=== PATIENT | male | born 1985 | race Hispanic/Latino ===

== ENCOUNTER 2019-12-26 00:20 | Emergency (ER) | payer OTHER ==
[2019-12-26] MEDS ORDERED: ACETAMINOPHEN EXTRA STRENGTH 500 MG TABLET ONE (01:13)
== END 2019-12-26 01:20 | disposition home or self-care (01) ==
LOC: EDH 00:20
DX: S61.012A Laceration without foreign body of left thumb without damage to nail, initial encounter (principal); Z72.0 Tobacco use; W26.0XXA Contact with knife, initial encounter; Y93.89 Activity, other specified; Y92.098 Other place in other non-institutional residence as the place of occurrence of the external cause; Y99.8 Other external cause status

== ENCOUNTER 2021-04-06 23:53 | Emergency (ER) | payer OTHER ==
[~2021-04-06] VITALS: Ht 165.1 cm; Wt 68.0 kg
[2021-04-07] MEDS ORDERED: CEPH500B PO (00:34)
[2021-04-07 00:36] VITALS: BP 144/87
== END 2021-04-07 00:46 | disposition home or self-care (01) ==
LOC: EDH 23:53
DX: H00.013 Hordeolum externum right eye, unspecified eyelid (principal)